=== PATIENT | female | born 1970 | race Caucasian/White ===

== ENCOUNTER 2020-05-22 05:48 | Day surgery (SDC) | payer OTHER, SELFPAY ==
[~2020-05-22] VITALS: Ht 162.6 cm; Wt 64.9 kg
[2020-05-22] MEDS ORDERED: fentaNYL citrate 0.05 MG/ML VIAL ONE (07:45)
[2020-05-22] MEDS ORDERED: LIDOCAINE 2% 100 MG/5 ML UJET TP ONE (07:45)
[2020-05-22] MEDS ORDERED: fentaNYL citrate 0.05 MG/ML VIAL IVP ONE (10:05)
== END 2020-05-22 08:50 | disposition home or self-care (01) ==
LOC: MDS 05:48 → MMU 06:05 → MDS 08:50
PROVIDERS: ATTEND Internal Medicine Gastroenterology
DX: Z12.11 Encounter for screening for malignant neoplasm of colon (principal); Z80.0 Family history of malignant neoplasm of digestive organs; Z88.8 Allergy status to other drugs, medicaments and biological substances; Z79.899 Other long term (current) drug therapy; Z90.49 Acquired absence of other specified parts of digestive tract; Z20.828 Contact with and (suspected) exposure to other viral communicable diseases
CPT/HCPCS: 45378; 81025; J3010; U0003

== ENCOUNTER 2020-05-26 17:59 | Emergency (ER) | payer OTHER, SELFPAY ==
[~2020-05-26] VITALS: Ht 157.5 cm; Wt 65.8 kg
[2020-05-26 18:04] VITALS: BP 120/79
--- NOTE | 2020-05-26 19:02 | NUR ---
49 YEAR OLD FEMALE COMPLAINS OF SWOLLEN THROAT X COUPLE OF MONTHS. PT STATES THAT STARTING YESTERDAY SHE HAS BEEN HAVING A HARD TIME SWALLOWING. PT AOX4, BREATHING EVEN AND UNLABORED, SKIN WARM AND DRY. BED IN LOWEST POSITION, LOCKED, BED RAIL UPX1. PMH - DENIES ALLERGIES - ACETAMINOPHEN
--- NOTE | 2020-05-26 19:09 | NUR ---
recieved report from Isidro OVALLES, transfer of care this time.
[2020-05-26 19:36] LABS: BASOPHILS % (AUTO) 0.3 % (0.0-2.0); EOSINOPHILS % (AUTO) 0.6 % (0.0-4.0); HEMATOCRIT 34.8 % (36-48); HEMOGLOBIN 11.2 g/dL (12.0-16.0); LYMPHOCYTES % (AUTO) 33.2 % (20.5-51.1); MEAN CORPUSCULAR HEMOGLOBIN 26 pg (27-31); MEAN CORPUSCULAR HGB CONC 32 g/dL (33-37); MEAN CORPUSCULAR VOLUME 81.3 fL (80-94); MONOCYTES # (AUTO) 0.5 K/uL (0.8-1.0); MONOCYTES % (AUTO) 8.6 % (1.7-9.3); NEUTROPHILS # (AUTO) 3.5 K/uL (1.8-7.7); NEUTROPHILS % (AUTO) 57.3 % (42.2-75.2); PLATELET COUNT (AUTO) 289 K/uL (140-450); RED BLOOD CELL COUNT(AUTO) 4.29 MIL/uL (4.20-5.40); RED CELL DISTRIBUTION WIDTH 18.6 % (11.6-13.7)
[2020-05-26 20:00] LABS: ANION GAP 12.3 (8-16); CREATININE 0.6 mg/dL (0.6-1.3); FREE T4 (FREE THYROXINE) 1.38 ng/dL (0.76-1.46); POTASSIUM 3.3 mmol/L (3.5-5.1); THYROID STIMULATING HORMONE 0.3 uIU/mL (0.34-3.74); TOTAL BILIRUBIN 0.4 mg/dL (0.0-1.0)
--- NOTE | 2020-05-26 20:20 | NUR ---
Dr. Rain examining patient.
--- NOTE | 2020-05-26 20:55 | NUR ---
PT TAKEN TO CT
--- NOTE | 2020-05-26 21:07 | NUR ---
PT RETURN FROM CT
[2020-05-26 22:20] VITALS: BP 100/69
--- NOTE | 2020-05-26 22:34 | NUR ---
Patient discharged with v/s stable. Written and verbal after care instructions given and explained. Patient verbalized understanding. Ambulatory with steady gait. All questions addressed prior to discharge. Advised to follow up with PMD.
== END 2020-05-26 22:34 | disposition home or self-care (01) ==
LOC: MED 17:59
DX: E04.9 Nontoxic goiter, unspecified (principal); R13.10 Dysphagia, unspecified; E04.1 Nontoxic single thyroid nodule; E05.90 Thyrotoxicosis, unspecified without thyrotoxic crisis or storm; I67.1 Cerebral aneurysm, nonruptured; Z88.6 Allergy status to analgesic agent
CPT/HCPCS: 36415; 70490; 80053; 81025; 84439; 84443; 84479; 85025; 93005; 99285